=== PATIENT | female | born 1965 | race Caucasian/White ===

== ENCOUNTER → 2016-12-18 | Outpatient (CLI) | payer BC ==
[2016-10-10 00:41] VITALS: BP 132/60
[~2016-12-18] MED LIST: BENZ100C PO; GUAI600T38 PO; SULF1TAB24 PO
--- NOTE | 2016-12-18 15:41 | KCIC ---
Bilateral digital screening mammograms with CAD: HISTORY Routine screening. COMPARISON Comparison is made to previous studies dated back to 10/05/2013. FINDINGS Breast density category C. The skin and nipples show no abnormalities. No abnormal lymph nodes are seen in the axilla. The breast parenchyma shows heterogeneous density. 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 There are no new there are no dominant masses, suspicious calcifications or architectural distortions. Scattered benign appearing calcifications are present. IMPRESSION No evidence of malignancy. Recommend routine annual mammographic screening. This study was interpreted with the benefit of Computerized Aided Detection (CAD). Mammography is not 100% sensitive in detecting breast cancer. Therefore, a self breast exam and a clinical breast exam are very important. A negative mammogram does not negate a clinically suspicious finding and should not result in a delay in biopsying a clinically suspicious abnormality. BI-RADS category 2. Benign. This patient's information has been entered into a reminder system for the patient to be notified with the results of this examination and a target date for her next mammograms. Electronically signed by: Selena Avery MD (Dec 18, 2016 15:40:27)
== END | disposition home or self-care (01) ==
LOC: KCIC MAMMO 14:02
PROVIDERS: ATTEND Family Medicine
DX: Z12.31 Encounter for screening mammogram for malignant neoplasm of breast (principal)
CPT/HCPCS: G0202; 77067

== ENCOUNTER → 2016-12-20 | Outpatient (CLI) | payer BC ==
[2016-10-10 00:41] VITALS: BP 132/60
--- NOTE | 2016-12-20 11:41 | KCIC ---
PROCEDURE Two-view chest. HISTORY Shortness of air for 2 months, nonsmoker COMPARISON October 09, 2016 FINDINGS Two views of the chest are submitted. Pericardial cardiac silhouette is similar, borderline enlarged. There is no dependent pleural fluid or pneumothorax. Mild interstitial opacity has not significantly changed. There is atherosclerotic calcification near the aortic arch. Comparing with older 2006 exam, there has been progression of cephalization. IMPRESSION 1. No acute radiographic abnormality is identified. Compared with older 2006 exam, there has been some progression of cephalization. Electronically signed by: Viraj Everett MD (Dec 20, 2016 11:40:35)
== END | disposition home or self-care (01) ==
LOC: KCIC 10:13
PROVIDERS: ATTEND Family Medicine
DX: R06.02 Shortness of breath (principal)
CPT/HCPCS: 71020